=== PATIENT | male | born 1940 | race Caucasian/White ===

== ENCOUNTER 2016-09-08 11:06 | Emergency (ER) | payer MEDICARE, OTHER ==
--- NOTE | 2016-09-08 11:47 | ED Physician Documentation ---
General Adult - HISTORIAN Historian: patient - HPI Stated Complaint: UTI Chief Complaint: General Adult Additional Information: Self caths. Given prelubricated catheters on 09/02. Has had white drainage from urethra since. No fevers. Self caths 2/2 urinary retntion with BPH. - ROS CONST: no problems - PAST HX Past History: COPD, other (pneumonia) Allergies/Adverse Reactions: Allergies Allergy/AdvReac Type Severity Reaction Status Date / Time No Known Drug Allergies Allergy Verified 09/08/16 11:26 Home Medications: Ambulatory Orders Medication Instructions Recorded Albuterol Sulfate [Albuterol 2 sprays IH prn PRN #1 unit 03/01/13 Sulfate Hfa] Dutasteride [Avodart] 0.5 mg PO HS av 03/01/13 Gabapentin [Gabapentin] 100 mg PO BID 09/08/16 Metoprolol Tartrate [Metoprolol 50 mg PO DAILY 09/08/16 Tartrate] Nitrofurantoin Monohyd/M-Cryst 100 mg PO Q12H #14 capsule 09/08/16 [Macrobid] Ranitidine HCl [Zantac] 150 mg PO DAILY 09/08/16 amLODIPine BESYLATE [Norvasc] 10 mg PO DAILY 09/08/16 oxyCODONE HCL/ACETAMINOPHEN 1 tab PO BID 09/08/16 [Percocet 5/325] - SOCIAL HX Smoking History: cigarettes - FAMILY HX Family History: No - VITAL SIGNS Vital Signs: Vital Signs Temp Pulse Resp BP Pulse Ox 168/72 11/17/13 16:54 - REVIEWED ASSESSMENTS Nursing Assessment Reviewed: Yes Vitals Reviewed: Yes ED Results Lab/Radiology - Orders Orders: ED Orders Category Date Time Status UA [URINALYSIS] Routine Lab 09/08/16 Ordered General Adult Physical Exam - PHYSICAL EXAM GENERAL APPEARANCE: thin EENT: eye inspection normal NECK: normal inspection, supple RESPIRATORY: no resp distress BACK: other (erect posture) SKIN: warm/dry, normal color EXTREMITIES: normal range of motion (gait), no evidence of injury NEURO: CN's nml as tested, motor nml, sensation nml Discharge Clincal Impression: Urinary tract infection Prescriptions: Nitrofurantoin Monohyd/M-Cryst [Macrobid] 100 mg PO Q12H #14 capsule Referrals: Primary Doctor,No [Primary Care Provider] - 2 Days Home Medications: Ambulatory Orders Albuterol Sulfate [Albuterol Sulfate Hfa] 2 sprays IH prn PRN #1 unit 03/01/13 Dutasteride [Avodart] 0.5 mg PO HS av 03/01/13 Gabapentin [Gabapentin] 100 mg PO BID 09/08/16 Metoprolol Tartrate [Metoprolol Tartrate] 50 mg PO DAILY 09/08/16 Nitrofurantoin Monohyd/M-Cryst [Macrobid] 100 mg PO Q12H #14 capsule 09/08/16 Ranitidine HCl [Zantac] 150 mg PO DAILY 09/08/16 amLODIPine BESYLATE [Norvasc] 10 mg PO DAILY 09/08/16 oxyCODONE HCL/ACETAMINOPHEN [Percocet 5/325] 1 tab PO BID 09/08/16 Condition: Fair Disposition: 01 HOME, SELF-CARE Decision to Admit: NO Decision Time: 11:49
[2016-09-08 11:48] VITALS: BP 125/62
[2016-09-08 15:01] LABS: APPEARANCE,URINE CLEAR (CLEAR); COLOR,URINE YELLOW (YELLOW); OCCULT BLOOD,URINE 2+ (NEGATIVE); PH URINE 5.5 (5.0 - 8.0); UROBILINOGEN URINE 0.2 Eu (0.2-1.0)
== END 2016-09-08 11:52 | disposition home or self-care (01) ==
LOC: ED 11:06
DX: N39.0 Urinary tract infection, site not specified (principal)
CPT/HCPCS: 81002; 87086; 87186; 99283

== ENCOUNTER 2016-12-20 02:22 | Emergency (ER) | payer MEDICARE, OTHER ==
--- NOTE | 2016-12-20 02:40 | ED Physician Documentation ---
General Adult - HISTORIAN Historian: patient - HPI Stated Complaint: Urinary retention Chief Complaint: General Adult Onset: days ago (1) Timing: still present Severity: moderate Further Comments: yes (Pt is a 76 yo male who had prostate surgery 12/13/16 and had had a catheter, which was removed yesterday. Pt has been unable to void since the catheter was removed. Pt has appointment with his urologist later today.) - ROS CONST: no problems CVS/RESP: none GI/: problems urinating MS/SKIN/LYMPH: none - PAST HX Past History: COPD, other (GERD, Thyroid d/o, HTN) Surgeries/Procedures: other (recent prostate surgery) Allergies/Adverse Reactions: Allergies Allergy/AdvReac Type Severity Reaction Status Date / Time diltiazem Allergy Verified 12/20/16 02:34 methimazole Allergy Verified 12/20/16 02:34 Home Medications: Ambulatory Orders Medication Instructions Recorded Albuterol Sulfate [Albuterol 2 sprays IH prn PRN #1 unit 03/01/13 Sulfate Hfa] Gabapentin [Gabapentin] 100 mg PO BID 09/08/16 Metoprolol Tartrate [Metoprolol 50 mg PO DAILY 09/08/16 Tartrate] Ranitidine HCl [Zantac] 150 mg PO DAILY 09/08/16 amLODIPine BESYLATE [Norvasc] 10 mg PO DAILY 09/08/16 oxyCODONE HCL/ACETAMINOPHEN 1 tab PO BID 09/08/16 [Percocet 5/325] Albuterol Sulfate [Proair 108 mcg INH QDAY 12/20/16 Respiclick] Calcium Carb 500Mg [Tums] 500 mg PO BID 12/20/16 Ciprofloxacin HCl [Cipro] 250 mg PO QDAY 12/20/16 Fluticasone Propionate [Flovent 50 mcg IH QDAY 12/20/16 Diskus] Fluticasone/Salmeterol [Advair 1 each INH DAILY 12/20/16 500-50 Diskus] Mirtazapine [Remeron] 30 mg PO QDAY 12/20/16 Oxybutynin Chloride [Ditropan] 5 mg PO BID 12/20/16 Pantoprazole Sodium [Protonix] 40 mg PO 0700 12/20/16 Phenazopyridine HCl [Pyridium] 200 mg PO TID 12/20/16 Tizanidine HCl [Zanaflex] 2 mg PO BID 12/20/16 - SOCIAL HX Smoking History: quit greater than 1 year - FAMILY HX Family History: No - VITAL SIGNS Vital Signs: Vital Signs Temp Pulse Resp BP Pulse Ox 98.6 F 88 16 127/68 95 12/20/16 02:25 12/20/16 02:25 12/20/16 02:25 12/20/16 02:25 12/20/16 02:25 - REVIEWED ASSESSMENTS Nursing Assessment Reviewed: Yes Vitals Reviewed: Yes Progress - Progress Progress: In and out cath placed with 300 cc urine out Indwelling cath placed. Pt has appointment to f/u with urologist later today. General Adult Physical Exam - PHYSICAL EXAM GENERAL APPEARANCE: no distress EENT: pharynx normal NECK: normal inspection, supple RESPIRATORY: no resp distress, chest non-tender, breath sounds normal CVS: reg rate & rhythm, heart sounds normal ABDOMEN: soft, no organomegaly, normal bowel sounds BACK: normal inspection SKIN: warm/dry, normal color EXTREMITIES: non-tender, normal range of motion NEURO: oriented X3, motor nml, sensation nml Discharge Clincal Impression: urinary retention Referrals: Sara Hernandez MD [Primary Care Provider] - Home Medications: Ambulatory Orders Albuterol Sulfate [Albuterol Sulfate Hfa] 2 sprays IH prn PRN #1 unit 03/01/13 Gabapentin [Gabapentin] 100 mg PO BID 09/08/16 Metoprolol Tartrate [Metoprolol Tartrate] 50 mg PO DAILY 09/08/16 Ranitidine HCl [Zantac] 150 mg PO DAILY 09/08/16 amLODIPine BESYLATE [Norvasc] 10 mg PO DAILY 09/08/16 oxyCODONE HCL/ACETAMINOPHEN [Percocet 5/325] 1 tab PO BID 09/08/16 Albuterol Sulfate [Proair Respiclick] 108 mcg INH QDAY 12/20/16 Calcium Carb 500Mg [Tums] 500 mg PO BID 12/20/16 Ciprofloxacin HCl [Cipro] 250 mg PO QDAY 12/20/16 Fluticasone Propionate [Flovent Diskus] 50 mcg IH QDAY 12/20/16 Fluticasone/Salmeterol [Advair 500-50 Diskus] 1 each INH DAILY 12/20/16 Mirtazapine [Remeron] 30 mg PO QDAY 12/20/16 Oxybutynin Chloride [Ditropan] 5 mg PO BID 12/20/16 Pantoprazole Sodium [Protonix] 40 mg PO 0700 12/20/16 Phenazopyridine HCl [Pyridium] 200 mg PO TID 12/20/16 Tizanidine HCl [Zanaflex] 2 mg PO BID 12/20/16 Condition: Stable Disposition: 01 HOME, SELF-CARE Decision to Admit: NO Decision Time: 03:29
[2016-12-20 04:08] VITALS: BP 135/65
== END 2016-12-20 03:35 | disposition home or self-care (01) ==
LOC: ED 02:22
DX: R33.9 Retention of urine, unspecified (principal)
CPT/HCPCS: 51701; 51702; 99283

== ENCOUNTER 2017-12-18 14:31 | Outpatient (CLI) | payer MEDICARE, OTHER | END 2017-12-18 14:50 | LOC: LAB 14:31 | PROVIDERS: ATTEND Internal Medicine Gastroenterology | DX: B18.2 Chronic viral hepatitis C (principal) | CPT/HCPCS: 36415; 87521 ==

== ENCOUNTER 2017-12-28 17:46 | Emergency (ER) | payer MEDICARE, OTHER ==
--- NOTE | 2017-12-28 18:21 | ED Physician Documentation ---
General Adult - VITAL SIGNS Vital Signs: Vital Signs Temp Pulse Resp BP Pulse Ox 99.8 F H 93 H 23 118/63 97 12/28/17 18:05 12/28/17 18:05 12/28/17 18:05 12/28/17 18:05 12/28/17 18:05 <Davian Smith - Last Filed: 12/28/17 20:35> - HPI Stated Complaint: fever Chief Complaint: General Adult Additional Information: Fever began yesterday and has been as high as 103. Took tylenol at 1600 today and temp is 99.6 in ER. Urinary frequency and dysuria. Has burning but that this is constant. Has self-cathed for 15 years. Reports 4-5 UTI's in last 2 years. HX COPD, gastric resection for ulcers, BPH with prostate surgery. Has decreased appetite and recent weight loss. No other modifying factors or associated signs. - ROS CONST: fever - PAST HX Past History: other (above) - SOCIAL HX Smoking History: quit greater than 1 year, cigarettes - FAMILY HX Family History: Yes (cancer) - VITAL SIGNS Vital Signs: Vital Signs Temp Pulse Resp BP Pulse Ox 135/65 12/20/16 04:06 - REVIEWED ASSESSMENTS Nursing Assessment Reviewed: Yes Vitals Reviewed: Yes <DENNIS MELENDEZ - Last Filed: 01/03/18 12:52> - PAST HX Allergies/Adverse Reactions: Allergies Allergy/AdvReac Type Severity Reaction Status Date / Time diltiazem Allergy Verified 12/28/17 18:04 methimazole Allergy Verified 12/28/17 18:04 Home Medications: Ambulatory Orders Medication Instructions Recorded amLODIPine BESYLATE [Norvasc] 10 mg PO DAILY 09/08/16 oxyCODONE HCL/ACETAMINOPHEN 1 tab PO BID 09/08/16 [Percocet 5/325] Albuterol Sulfate [Proair 108 mcg INH QDAY 12/20/16 Respiclick] Fluticasone/Salmeterol [Advair 1 each INH DAILY 12/20/16 500-50 Diskus] Ferrous Sulfate [Iron] 325 mg PO TID 12/28/17 Omeprazole 20 mg PO DAILY 12/28/17 Sulfamethoxazole/Trimethoprim 1 each PO BID #20 tab 12/28/17 [Bactrim Ds] Tramadol HCl [Ultram] 50 mg PO TID 12/28/17 Progress - Progress Progress: Rx Bactrim DS 1 po q 12 h x 10 days. <Davian Smith - Last Filed: 12/28/17 20:35> - Progress Progress: 1899, care to Dr. Smith. Cr. 1.3. 1 1/2 years ago, was 1.0. Receiving a liter bolus NS over 2 hours. I GM Rocephin IV. Home with script for po abx. WBC normal. <DENNIS MELENDEZ - Last Filed: 01/03/18 12:52> ED Results Lab/Radiology - Lab Results Lab Results: Lab Results 12/28/17 12/28/17 Unknown Unknown WBC 7.40 K/ul K/ul (4.00-12.00) RBC 4.18 M/ul M/ul (3.90-5.20) Hgb 12.9 g/dL g/dL (12.0-18.0) Hct 38.7 % % (37.0-53.0) MCV 92.5 fl fl (80.0-100.0) MCH 30.9 pg pg (28.0-34.0) MCHC 33.4 g/dL g/dL (30.0-36.0) RDW 13.9 % % (11.3-14.3) Plt Count 212 K/mm3 K/mm3 (130-400) Neut % (Auto) 85.7 % H % (39.0-79.0) Lymph % (Auto) 6.5 % L % (16.0-50.0) [place] % (Auto) 5.4 % % (0.0-11.0) Eos % (Auto) 0.6 % % (0.0-6.8) Baso % (Auto) 0.3 (0.0-1.5) Neut # (Auto) 6.4 # k/uL # k/uL (1.4-7.7) Lymph # (Auto) 0.5 # k/uL L # k/uL (0.6-4.0) [place] # (Auto) 0.4 # k/uL # k/uL (0.0-0.9) Eos # (Auto) 0.0 # k/uL # k/uL (0.0-0.6) Baso # (Auto) 0.0 # k/uL # k/uL (0.0-0.5) Reactive Lymphs % 1.4 % % (0.0-5.0) Reactive Lymphs # 0.1 # k/uL # k/uL (0.0-0.8) Sodium 138 mmol/L mmol/L (136-145) Potassium 4.0 mmol/L mmol/L (3.5-5.1) Chloride 103 mmol/L mmol/L (98-107) Carbon Dioxide 27 mmol/L mmol/L (22-30) BUN 21 mg/dL H mg/dL (9-20) Creatinine 1.30 mg/dL H mg/dL (0.66-1.25) Estimated Creat Clear 29 Est GFR ( Amer) > 60 (60 - ) Est GFR (Non-Af Amer) 57 L (60 - ) Glucose 139 mg/dL H mg/dL (74-106) Calcium 9.0 mg/dL mg/dL (8.4-10.2) Total Bilirubin 0.2 mg/dL mg/dL (0.2-1.3) AST 15 U/L U/L (15-46) ALT 11 U/L L U/L (13-69) Alkaline Phosphatase 67 U/L U/L (38-126) Total Protein 6.7 g/dL g/dL (6.3-8.2) Albumin 3.6 g/dL g/dL (3.5-5.0) - Orders Orders: ED Orders Category Date Time Status Place IV Lock 1T Care 12/28/17 18:05 Active CBC/PLATELET/DIFF Routine Lab 12/28/17 Completed CMP Routine Lab 12/28/17 Completed UA [URINALYSIS] Routine Lab 12/28/17 Ordered 0.9 % Sodium Chloride [Normal Saline] 1,000 ml Med 12/28/17 18:07 Active IV Q2H 0.9 % Sodium Chloride [Sodium Chloride] 100 ml Med 12/28/17 18:24 Discontinued IV .STK-MED cefTRIAXone SODIUM [Rocephin] Med 12/28/17 18:24 Discontinued 1 gm .ROUTE .STK-MED ONE cefTRIAXone SODIUM [Rocephin] 1 gm Med 12/28/17 18:06 Discontinued 0.9 % Sodium Chloride [Sodium Chloride] 100 ml IV NOW <Zygiel,Davian D - Last Filed: 12/28/17 20:35> - Orders Orders: ED Orders Category Date Time Status Place IV Lock 1T Care 12/28/17 18:05 Ordered CBC/PLATELET/DIFF Routine Lab 12/28/17 Ordered CMP Routine Lab 12/28/17 Ordered UA [URINALYSIS] Routine Lab 12/28/17 Ordered cefTRIAXone SODIUM [Rocephin] 1 gm Med 12/28/17 18:06 Ordered 0.9 % Sodium Chloride [Sodium Chloride] 100 ml IV NOW <DENNIS MELENDEZ - Last Filed: 01/03/18 12:52> General Adult Physical Exam - PHYSICAL EXAM GENERAL APPEARANCE: thin EENT: eye inspection normal, ENT inspection normal (with many absent teeth), pharynx normal NECK: normal inspection, supple RESPIRATORY: breath sounds normal (left, decreased on right) CVS: reg rate & rhythm, heart sounds normal ABDOMEN: soft, normal bowel sounds, no distension, non-tender BACK: normal inspection, no CVA tenderness, other (no vertebral tenderness) SKIN: warm/dry, normal color EXTREMITIES: normal range of motion (gait and stance), no evidence of injury NEURO: CN's nml as tested, motor nml, sensation nml, cognition normal <DENNIS MELENDEZ - Last Filed: 01/03/18 12:52> Discharge Decision to Admit: NO Decision Time: 20:45 <Davian Smith - Last Filed: 12/28/17 20:35> <DENNIS MELENDEZ - Last Filed: 01/03/18 12:52> Clincal Impression: Urinary tract infection Prescriptions: Sulfamethoxazole/Trimethoprim [Bactrim Ds] 1 each PO BID #20 tab Referrals: Primary Doctor,No [REFERRING] - Condition: Stable Disposition: 01 HOME, SELF-CARE
[2017-12-28 18:28] LABS: BASOPHILS % 0.3 (0.0-1.5); EOSINOPHILS % 0.6 % (0.0-6.8); MEAN CORPUSCULAR HEMOGLOBIN 30.9 pg (28.0-34.0); MEAN CORPUSCULAR VOLUME 92.5 fl (80.0-100.0); MONOCYTES % 5.4 % (0.0-11.0); NEUTROPHILS # 6.4 # k/uL (1.4-7.7)
[2017-12-28] MEDS: 0.9 % SODIUM CHLORIDE 1,000 ML IV ONE (18:39)
[2017-12-28] MEDS: cefTRIAXone SODIUM 1 GM VIAL ONE (18:40)
[2017-12-28] MEDS: 0.9 % SODIUM CHLORIDE 100 ML IV ONE (18:40)
[2017-12-28 18:41] LABS: eGFR (African) > 60; eGFR (Non-African) 57
[2017-12-28] MEDS: cefTRIAXone SODIUM 1 GM in 0.9 % SODIUM CHLORIDE 100 ML IV ONE (18:42)
[2017-12-28 21:34] VITALS: BP 151/70
[2017-12-29 07:45] LABS: APPEARANCE,URINE CLOUDY (CLEAR); COLOR,URINE YELLOW (YELLOW); OCCULT BLOOD,URINE 2+ (NEGATIVE); PH URINE 5.5 (5.0 - 8.0); UROBILINOGEN URINE 0.2 Eu (0.2-1.0)
== END 2017-12-28 20:45 | disposition home or self-care (01) ==
LOC: ED 17:46
DX: N39.0 Urinary tract infection, site not specified (principal)
CPT/HCPCS: 80053; 81002; 85025; 87086; 87186; J0696; J7030; 96365; 96366; 96375; 99284; S1016

== ENCOUNTER 2018-07-26 15:24 | Emergency (ER) | payer MEDICARE, OTHER ==
--- NOTE | 2018-07-26 15:44 | ED Physician Documentation ---
General Adult - HISTORIAN Historian: patient - HPI Stated Complaint: hyperglycemia Chief Complaint: General Adult Additional Information: Patient presents to ED after concerns of high blood sugar. He states he has had issues his entire life (since age 20) with hypoglycemia. Several days ago he began to check his blood sugars repeatedly. Today he states he took his blood sugar and it was over 325. He is uncertain as to when he took it in reference to eating. This high blood of 325 concerned him and he thought he might so he came to the ER. He brought is niece's glucometer which he has been using to check his blood sugar. It is unclear which blood sugars are his or his niece's. He is very anxious about his blood sugars. Onset: days ago (2) Timing: gone now Severity: mild - ROS CONST: no problems EYES/ENT: none CVS/RESP: none GI/: none MS/SKIN/LYMPH: none NEURO/PSYCH: denies: headache - PAST HX Past History: hypertension Other History: none Surgeries/Procedures: none Allergies/Adverse Reactions: Allergies Allergy/AdvReac Type Severity Reaction Status Date / Time diltiazem Allergy Verified 12/28/17 18:04 methimazole Allergy Verified 12/28/17 18:04 Home Medications: Ambulatory Orders Medication Instructions Recorded amLODIPine BESYLATE [Norvasc] 10 mg PO DAILY 09/08/16 oxyCODONE HCL/ACETAMINOPHEN 1 tab PO BID 09/08/16 [Percocet 5/325] Albuterol Sulfate [Proair 108 mcg INH QDAY 12/20/16 Respiclick] Fluticasone/Salmeterol [Advair 1 each INH DAILY 12/20/16 500-50 Diskus] Omeprazole 20 mg PO DAILY 12/28/17 Tramadol HCl [Ultram] 50 mg PO TID 12/28/17 Levofloxacin [Levaquin] 750 mg PO DAILY 7 Days tablet 04/12/18 Ondansetron HCl Rapdis [Zofran Odt] 4 mg PO Q8 #40 tab 04/12/18 predniSONE [Deltasone] 20 mg PO DIRECTED #20 tablet 04/12/18 - SOCIAL HX Smoking History: non-smoker Alcohol Use: none Drug Use: none - FAMILY HX Family History: No - VITAL SIGNS Vital Signs: Vital Signs Temp Pulse Resp BP Pulse Ox 168/74 04/12/18 20:30 - REVIEWED ASSESSMENTS Nursing Assessment Reviewed: Yes Vitals Reviewed: Yes General Adult Physical Exam - PHYSICAL EXAM GENERAL APPEARANCE: anxious EENT: FABIAN NECK: supple RESPIRATORY: no resp distress, other (markedly diminshed breath sounds bilaterally) CVS: reg rate & rhythm, heart sounds normal ABDOMEN: soft, no organomegaly, normal bowel sounds, no abdominal bruit, no distension SKIN: warm/dry, normal color EXTREMITIES: non-tender, no edema NEURO: oriented X3, CN's nml as tested Discharge Clincal Impression: Well adult health check Referrals: Lizbet Nelson MD [Primary Care Provider] - 2 Days Additional Instructions: 1. STOP checking your blood sugars 2. When you feel your blood sugar is low, do like you have in the past and eat something to bring it up 3. Add Ensure with meals everyday 4. Follow up with PCP within 1 week 5. Return to the ER for new or worsening symptoms Condition: Stable Disposition: 01 HOME, SELF-CARE Decision to Admit: NO Date of Decison to Admit: 07/26/18 Decision Time: 16:23
[2018-07-26 15:54] VITALS: BP 160/90
== END 2018-07-26 16:38 | disposition home or self-care (01) ==
LOC: ED 15:24
DX: Z71.1 Person with feared health complaint in whom no diagnosis is made (principal)
CPT/HCPCS: 99281

== ENCOUNTER 2019-02-16 10:53 | Emergency (ER) | payer MEDICARE, OTHER ==
[2019-02-16 11:25] LABS: BASOPHILS % 0.5 % (0.0-1.5); NEUTROPHILS # 13.8 # k/uL (1.4-7.7)
--- NOTE | 2019-02-16 11:28 | ED Physician Documentation ---
General Adult - HISTORIAN Historian: patient - HPI Chief Complaint: General Adult (Weakness, dizziness, nausea= dehydration) Additional Information: Patient is a 78 year old male who presents to the ER with family member. Patient feels that he may be dehydrated; states he has been mowing yards for 2 days and has not been drinking any water "I don't like water". He states that he feels weak, occasional dizziness, nausea and had heartburn last night (he states that he has been out of Omeprazole x 1 week but dropped off bottles this morning at pharmacy)- he denies cardiac chest pain; states he has chronic pain due to Emphysema (quit smoking 2 years ago)- pain is the same/unchanged. Patient feels that he has just over done it the last couple of days. Onset: hours Timing: still present, better Severity: mild Modifying Factors: Out in heat mowing yards Context: Not drinking water - ROS CONST: weakness EYES/ENT: none CVS/RESP: shortness of breath ("emphysema"- unchanged) GI/: nausea, other (acid reflux) MS/SKIN/LYMPH: none NEURO/PSYCH: dizziness - PAST HX Past History: COPD, hypertension Other History: other (GERD) Surgeries/Procedures: other (hernia) Immunizations: UTD Allergies/Adverse Reactions: Allergies Allergy/AdvReac Type Severity Reaction Status Date / Time diltiazem Allergy Verified 02/16/19 12:57 methimazole Allergy Verified 02/16/19 12:57 Home Medications: Ambulatory Orders Medication Instructions Recorded amLODIPine BESYLATE [Norvasc] 10 mg PO DAILY 09/08/16 oxyCODONE HCL/ACETAMINOPHEN 1 tab PO BID 09/08/16 [Percocet 5/325] Albuterol Sulfate [Proair 108 mcg INH QDAY 12/20/16 Respiclick] Fluticasone Propion/Salmeterol 1 each INH DAILY 12/20/16 [Advair 500-50 Diskus] Omeprazole 20 mg PO DAILY 12/28/17 Sulfamethoxazole/Trimethoprim 1 each PO BID #20 tab 10/01/18 [Bactrim Ds] - SOCIAL HX Smoking History: quit greater than 1 year (quit 2 years ago) Alcohol Use: none Drug Use: none - FAMILY HX Family History: No - VITAL SIGNS Vital Signs: Vital Signs Temp Pulse Resp BP Pulse Ox 161/93 10/01/18 14:14 - REVIEWED ASSESSMENTS Nursing Assessment Reviewed: Yes Vitals Reviewed: Yes Progress - Progress Progress: 13:00 Patient feels much better after IV fluids and Protonix- denies any acid reflux Feels ready to go home ED Results Lab/Radiology - Radiology Radiology Impressions: Exam: Chest two views. History: Shortness of breath. The examination is compared to study dated April 23, 2018. Lung feliz are well aerated without warren consolidation or effusion. Heart size is normal with atherosclerotic plaques seen in the aorta. No other bony abnormalities are identified. Impression: No warren consolidation or effusion Electronically signed on Feb 16, 2019 11:34:49 AM CDT by: Remington Childers - Orders Orders: ED Orders Category Date Time Status Continuous EKG monitoring Q30M Care 02/16/19 11:20 Active Continuous Pulse Oximetry Q30M Care 02/16/19 11:[address] IV Lock 1T Care 02/16/19 11:20 Active CHEST 2VIEW [RAD] Stat Exams 02/16/19 Ordered CBC/PLATELET/DIFF Routine Lab 02/16/19 11:20 Received CMP Routine Lab 02/16/19 11:20 Received CREATINE KINASE Routine Lab 02/16/19 11:20 Received NTBNP Routine Lab 02/16/19 11:20 Received Aspirin [Paul] Med 02/16/19 11:20 Discontinued 324 mg PO NOW ONE NORMAL SALINE @ 500 MLS/HR ( 1000ml BOLUS) Med 02/16/19 11:25 Ordered 0.9 % Sodium Chloride [Normal Saline] 1,000 ml IV Q2H Pantoprazole Sodium [Protonix] 40 mg Med 02/16/19 11:25 Ordered Sodium Chloride 0.9 % (Flush) [Normal Saline Flush] 10 ml IVP NOW Oxygen Daily Oxygen 02/16/19 11:30 Ordered EKG WITH COMPARISON Stat Ther 02/16/19 11:20 Ordered General Adult Physical Exam - PHYSICAL EXAM GENERAL APPEARANCE: mild distress EENT: eye inspection normal, ENT inspection normal, pharynx normal, FABIAN, dry mucous membranes NECK: normal inspection, supple RESPIRATORY: breath sounds normal CVS: reg rate & rhythm, heart sounds normal, equal pulses ABDOMEN: soft, normal bowel sounds BACK: normal inspection SKIN: warm/dry, pallor EXTREMITIES: non-tender, normal range of motion NEURO: oriented X3, CN's nml as tested, motor nml, sensation nml, mood/affect nml, cognition normal Discharge Clincal Impression: Dehydration Referrals: Lizbet Nelson MD [Primary Care Provider] - 2 Days Additional Instructions: Increase water intake daily- drink 8- 8oz glasses of water daily Try to avoid heat exposure for long periods of time High protein diet Rest Follow up with PCP next week for re-evaluation Condition: Good Decision to Admit: NO Decision Time: 13:40
[2019-02-16] MEDS: 0.9 % SODIUM CHLORIDE 1,000 ML IV ONE (11:42)
[2019-02-16] MEDS: PANTOPRAZOLE SODIUM 40 MG in SODIUM CHLORIDE 0.9 % (FLUSH) 10 ML IVP ONE (11:42)
[2019-02-16] MEDS: ASPIRIN 81 MG CHEW TAB PO ONE (11:42)
[2019-02-16 11:51] LABS: eGFR (Non-African) 54
[2019-02-16 13:17] VITALS: BP 148/70
[2019-02-17 08:32] LABS: APPEARANCE,URINE CLEAR (CLEAR); COLOR,URINE YELLOW (YELLOW); OCCULT BLOOD,URINE TRACE-LYSED (NEGATIVE); PH URINE 5.5 (5.0 - 8.0); UROBILINOGEN URINE 0.2 Eu (0.2-1.0)
--- NOTE | 2019-02-17 16:40 | Diagnostic Imaging Report ---
MICHELINE LEHMAN ED [facility] [id number] [facility].[address] [address] Report Submission Date: Feb 16, 2019 11:34:49 AM CDT Patient Study Name: RHINA GONZALEZ Date: Feb 16, 2019 11:18:22 AM CDT Modality Type: DX Gender: M Description: CHEST 2VIEW : 40 Institution: [facility] Physician: MICHELINE LEHMAN ED Exam: Chest two views. History: Shortness of breath. The examination is compared to study dated April 23, 2018. Lung feliz are well aerated without warren consolidation or effusion. Heart size is normal with atherosclerotic plaques seen in the aorta. No other bony abnormalities are identified. Impression: No warren consolidation or effusion Electronically signed on Feb 16, 2019 11:34:49 AM CDT by: Remington BROWN
== END 2019-02-16 13:02 ==
LOC: ED 10:53
DX: E86.0 Dehydration (principal)
CPT/HCPCS: 71046; 80053; 81002; 82550; 83880; 84484; 85025; 93005; 96360; 96361; 96374; 99282; 99284; J7030; S1016

== ENCOUNTER 2019-03-03 19:35 | Observation (INO) | payer MEDICARE, OTHER ==
[2019-03-03] MEDS ORDERED: DEXTROSE IV ONE ×2 (20:37→21:39)
[2019-03-03] MEDS ORDERED: NACL IV ONE ×2 (20:37→21:39)
[2019-03-04] MEDS ORDERED: ACETAMINOPHEN 325 MG TABLET ONE (05:51)
[2019-03-15 13:05] LABS: APPEARANCE,URINE CLEAR (CLEAR); BASOPHILS % 0.3 % (0.0-1.5); COLOR,URINE YELLOW (YELLOW); NEUTROPHILS # 7.2 # k/uL (1.4-7.7); OCCULT BLOOD,URINE TRACE-INTACT (NEGATIVE); PH URINE 5.5 (5.0 - 8.0); UROBILINOGEN URINE 0.2 Eu (0.2-1.0)
[2019-03-15 13:06] LABS: eGFR (Non-African) > 60
[2019-03-16 09:09] LABS: BASOPHILS % 0.4 % (0.0-1.5); NEUTROPHILS # 6.7 # k/uL (1.4-7.7); eGFR (Non-African) > 60
== END 2019-03-04 10:00 | disposition home or self-care (01) ==
LOC: ED 19:35 → SOUTH 21:05
PROVIDERS: ADMIT Nurse Practitioner Family; ATTEND Nurse Practitioner Family
DX: E16.2 Hypoglycemia, unspecified (principal)
CPT/HCPCS: 80053; 81002; 85025; 96374; 96376; 99218; 99282; 99283; G0378; S5010